=== PATIENT | female | born 1985 | race Caucasian/White ===

== ENCOUNTER 2017-01-23 01:19 | Inpatient (IN) | payer BC ==
[~2017-01-23] VITALS: Ht 154.9 cm; Wt 72.0 kg
[2017-01-23] VITALS (32 sets, daily range): BP systolic 109–148; BP diastolic 61–82
[~2017-01-23 01:19] MED LIST: MOTRIN800 MG PO; PERCOCET 5/31 TABLET PO; PRENATAL TABLE1 EAC3 PO; VENTOLIN HFA18 GM IH; [UNRECOGNIZED DRUG - OTHER] TP
[2017-01-23] MEDS ORDERED: DICLEGIS DR 101 EACH PO (02:08)
[2017-01-23] MEDS ORDERED: BENTYL20 MG PO (02:10)
[2017-01-23 02:48] LABS: EOSINOPHIL (%) 0.3 % (0-5); HEMATOCRIT 33.9 % (36.0-46.0); IMMATURE GRANULOCYTE (%) 0.4 % (0.0-0.7); INSTRUMENT ABS NEUTROPHIL CT 6.4 K/uL; LYMPHOCYTE COUNT 2.6 K/uL (1.0-2.8); MCH 31.3 PG (29.0-34.0); MCHC 33.9 G/DL (30.0-36.0); MCV 92.4 FL (83-99); MEAN PLAT.VOLUME 8.8 uM^3 (9.5-12.4); MONOCYTE (%) 7.5 % (3-12); MONOCYTE COUNT 0.7 K/uL (0-0.8); NEUTROPHIL (%) 65.3 % (45-76); NEUTROPHIL COUNT 6.4 K/uL (1.8-6.4); PLATELET COUNT 176 K/uL (156-360); RBC DIS.WIDTH-CV 12.8 % (11.8-14.6); RBC DIS.WIDTH-SD 42.4 % (39-53); RED BLOOD COUNT 3.67 M/uL (3.80-5.20); WHITE BLOOD COUNT 9.8 K/uL (4.1-10.2)
[2017-01-23] MEDS ORDERED: IBUPROFEN800 MG PO (20:25)
[2017-01-24 07:58] VITALS: BP 111/71
[2017-01-24 14:51] VITALS: BP 127/58
[2017-01-24 23:40] VITALS: BP 114/60
[2017-01-25 07:30] VITALS: BP 118/60
[2017-01-25] MEDS ORDERED: ENDOCET 5-3251 EACH PO (10:13)
[2017-01-25 15:10] VITALS: BP 116/63
== END 2017-01-25 17:10 | disposition home or self-care (01) | DRG 775 ==
LOC: LDRP-OP 01:19 → 2WEST 01:20
PROVIDERS: Nurse Practitioner
DX: O42.02 Full-term premature rupture of membranes, onset of labor within 24 hours of rupture (principal); Z3A.38 38 weeks gestation of pregnancy; O99.820 Streptococcus B carrier state complicating pregnancy; O70.1 Second degree perineal laceration during delivery; Z37.0 Single live birth
CPT/HCPCS: 85025; C1755; J2540; J3010; J7120